=== PATIENT | female | born 1940 | race Caucasian/White ===

== ENCOUNTER 2018-09-26 17:27 | Inpatient (IN) | payer OTHER, BC ==
[~2018-09-26] VITALS: Ht 152.4 cm; Wt 45.8 kg
[2018-09-26 17:30] VITALS: BP 172/54
--- NOTE | 2018-09-26 17:50 | NUR ---
PT TO ER BED 10 BY [facility]
--- NOTE | 2018-09-26 17:55 | NUR ---
BIBA. C/O GENERALIZED WEAKNESS, LETHARGIC, S/P DIALYSIS, -SOB. AV SHUNT TO RIGHT ARM. PT HAS ADVANCED DEMENTIA. ALERT, AWAKE, ORIENTED TO NAME. BS-77. HOB UP. BED SIDE RAILS UP X1. ON LOW BED POSITION, LOCKED. ER MADE AWARE OF PT STATUS.
[2018-09-26 18:24] LABS: BASOPHILS # (AUTO) 0.1 K/uL (0.00-0.22); BASOPHILS % (AUTO) 0.8 % (0.0-2.0); EOSINOPHILS # (AUTO) 0.1 K/uL (0-0.4); EOSINOPHILS % (AUTO) 1.8 % (0.0-4.0); HEMATOCRIT 30.9 % (36-48); HEMOGLOBIN 10.3 g/dL (12.0-16.0); LYMPHOCYTES # (AUTO) 1.3 K/uL (2.5-16.5); LYMPHOCYTES % (AUTO) 16.7 % (20.5-51.1); MEAN CORPUSCULAR HEMOGLOBIN 31 pg (27-31); MEAN CORPUSCULAR HGB CONC 33 g/dL (33-37); MEAN CORPUSCULAR VOLUME 93.8 fL (80-94); MONOCYTES # (AUTO) 0.8 K/uL (0.8-1.0); MONOCYTES % (AUTO) 11.2 % (1.7-9.3); NEUTROPHILS # (AUTO) 5.3 K/uL (1.8-7.7); NEUTROPHILS % (AUTO) 69.5 % (42.2-75.2); PLATELET COUNT (AUTO) 199 K/uL (140-450); RED BLOOD CELL COUNT(AUTO) 3.29 MIL/uL (4.20-5.40); RED CELL DISTRIBUTION WIDTH 15.9 % (11.6-13.7); WHITE BLOOD COUNT (AUTO) 7.6 K/uL (4.8-10.8)
[2018-09-26] MEDS ORDERED: ALBUTEROL SULFATE/IPRATROPIU 3 ML SOL IH ONE (18:25)
[2018-09-26] MEDS ORDERED: DEXAMETHASONE 10 MG/ML VIAL IVP ONE (18:25)
[2018-09-26] MEDS ORDERED: CARV6.25 PO (18:26)
[2018-09-26] MEDS ORDERED: IRON SUCROSE IVP (18:26)
[2018-09-26] MEDS ORDERED: VALS80TA2 PO (18:26)
[2018-09-26] MEDS ORDERED: AMLO-272 PO (18:26)
[2018-09-26] MEDS ORDERED: EPOE2000 IVP (18:26)
[2018-09-26] MEDS ORDERED: [UNRECOGNIZED DRUG - OTHER] PO (18:26)
[2018-09-26] MEDS ORDERED: [UNRECOGNIZED DRUG - OTHER] IVP (18:26)
[2018-09-26] MEDS ORDERED: APR10 PO (18:26)
[2018-09-26] MEDS ORDERED: [UNRECOGNIZED DRUG - CODE] IV (18:26)
[2018-09-26] MEDS ORDERED: BEN50 IVP (18:26)
[2018-09-26] MEDS ORDERED: CLON0.1T42 PO (18:26)
[2018-09-26] MEDS ORDERED: ACET-2619 PO (18:26)
[2018-09-26] MEDS ORDERED: QUET25TA PO (18:26)
[2018-09-26] MEDS ORDERED: ACET500C86 PO (18:26)
[2018-09-26] MEDS ORDERED: SEVE800T6 PO (18:26)
[2018-09-26] MEDS ORDERED: BENC PO (18:26)
[2018-09-26] MEDS ORDERED: VITD1000 PO (18:26)
[2018-09-26 18:32] LABS: ANION GAP 14.2 (8-16); CARBON DIOXIDE 28.8 mmol/L (21-32); CHLORIDE 99 mmol/L (98-107); GLUCOSE 85 mg/dL (74-106); SODIUM SERUM 138 mmol/L (136-145); UREA NITROGEN, BLOOD 34 mg/dL (7-18)
[2018-09-26 18:36] LABS: CREATININE 4.9 mg/dL (0.6-1.3)
--- NOTE | 2018-09-26 18:36 | NUR ---
career technology teacher at bedside.
--- NOTE | 2018-09-26 18:37 | NUR ---
CXR COMPLETED AT BEDSIDE
[2018-09-26 18:38] LABS: ALBUMIN 3.4 g/dL (3.4-5.0); ASPARTATE AMINOTRANSFERASE 27 U/L (15-37); TOTAL BILIRUBIN 0.7 mg/dL (0.0-1.0)
--- NOTE | 2018-09-26 18:44 | NUR ---
Respiratory therapist at bedside for breathing treatment and ABG.
[2018-09-26] MEDS ORDERED: cefTRIAXone 1,000 MG VIAL ONE (18:59)
--- NOTE | 2018-09-26 19:05 | NUR ---
bedside report received from KULWANT Rayo. transfer of care at this time
--- NOTE | 2018-09-26 19:09 | NUR ---
PT DID NOT ALLOW ME TO DRAW ABG. SON AT BEDSIDE. MD AND RN AWARE. HHN TX GIVEN WITH NO ADVERSE REACTION. NO SOB OR DISTRESS NOTED. WILL CONTINUE TO MONITOR.
[2018-09-26] MEDS ORDERED: AZITHROMYCIN 250 MG TAB PO ONE (19:15)
[2018-09-26] MEDS ORDERED: MEDICATION REC. PHARMACY CONS. 1 EA MISC MC PRN (19:30)
[2018-09-26] MEDS: NACL 0.9% 1,000 ML IV SCH (19:34)
[2018-09-26] MEDS ORDERED: ACETAMINOPHEN 325 MG TAB PO PRN (19:35)
[2018-09-26] MEDS ORDERED: ONDANSETRON 4 MG/2 ML VIAL IM/IVP PRN (19:35)
[2018-09-26] MEDS ORDERED: DOCUSATE SODIUM 100 MG GELCAP PO PRN (19:35)
[2018-09-26] MEDS ORDERED: HYDROcodone/APAP 7.5/325 MG 1 TAB PO PRN (19:35)
[2018-09-26] MEDS ORDERED: AZITHROMYCIN 500 MG in DEXTROSE 5% 250 ML IV ONE (19:45)
[2018-09-26 19:50] LABS: APPEARANCE,URINE CLEAR (CLEAR); BILIRUBIN,URINE NEGATIVE (NEGATIVE); BLOOD, URINE NEGATIVE (NEGATIVE); COLOR,URINE YELLOW (YELLOW); LEUKOCYTE ESTERASE ,URINE 1+ (NEGATIVE); NITRITE, URINE NEGATIVE (NEGATIVE); PH,URINE 8.5 (5.0-9.0); UGLUCOSE 1+ (NEGATIVE)
[2018-09-26 19:57] LABS: BARBITURATE, URINE NEG. ng/ml (NEG <=200); BENZODIAZEPINE, URINE NEG. ng/mL (NEG <=200); CANNABINOID, URINE NEG. ng/mL (NEG <=50); COCAINE, URINE NEG. ng/mL (NEG <=300); OPIATE, URINE NEG. ng/mL (NEG <=2000); PHENCYCLIDINE SCREEN,URINE NEG. ng/mL (NEG <=25)
[2018-09-26] MEDS ORDERED: AZITHROMYCIN 500 MG INJ VIAL IV ONE (19:58)
[2018-09-26 20:01] LABS: RBC,URINE 0-5 /HPF (0-5); WBC,URINE 0-5 /HPF (0-5)
--- NOTE | 2018-09-26 20:10 | NUR ---
Pt report given to KULWANT Leiva. Transfer of care at this time.
--- NOTE | 2018-09-26 20:10 | NUR ---
Patient will be admitted to care of MD Rashaun. Admited to Telemetry. Will go to room 123 A. Belongings list completed. Report to KULWANT Leiva.
[2018-09-26 20:14] LABS: CHOL/HDL RATIO 2.7 (1-4.5); FREE T4 (FREE THYROXINE) 1.28 ng/dL (0.76-1.46); MAGNESIUM 2.4 mg/dL (1.8-2.4); PHOSPHORUS 4.6 mg/dL (2.5-4.9); THYROID STIMULATING HORMONE 1.61 uIU/mL (0.34-3.74)
[2018-09-26] MEDS ORDERED: cloNIDine 0.1 MG TAB PO PRN (20:15)
[2018-09-26 20:20] VITALS: BP 124/90
--- NOTE | 2018-09-26 20:20 | NUR ---
RECEIVED BEDSIDE REPORT FROM KULWANT MORENO, PATIENT IN BED, ON 2 L NC. V/S TAKEN NOTED BP 124/90 HR 80 O2SAT 95%. SKIN INTACT, LUNG SOUNDS DIMINISHED, MRSA SCREEN COLLECTED AND SENT TO LAB. IV IN LEFT HAND 22 G INFUSING AZITHROMYCIN. NOTED RIGHT UPPER ARM AV SHUNT. PATIENT DROWSY, AAOX1 TO PERSON, SON FERNANDO AT BEDSIDE ABLE TO ANSWER ADMISSION QUESTIONS. BED ALARM ON, CALL LIGHT WITHIN REACH, WILL CONTINUE TO MONITOR.
[2018-09-26] MEDS: CARVEDILOL 6.25 MG TAB PO SCH (21:00)
[2018-09-26] MEDS ORDERED: amLODIPine 5 MG TAB PO SCH (21:00)
[2018-09-26] MEDS ORDERED: NON-FORMULARY ITEM (Amlodipine Besylate (Amlodipine) 5 MG) PO SCH (21:00)
[2018-09-26] MEDS: VALSARTAN 80 MG TAB PO SCH (21:00)
[2018-09-26] MEDS ORDERED: hydrALAZINE 10 MG TAB PO SCH (21:00)
--- NOTE | 2018-09-26 21:30 | NUR ---
PLACED PATIENT ON 2LNC. SATS ON ROOM AIR 91%. CUP PLACED AT BEDSIDE FOR SPUTUM SAMPLE. PATIENT SPEAKS DIVEHI. PT SEEMS ALTERED.
--- NOTE | 2018-09-26 21:38 | NUR ---
DR ORANTES ORDERED TO HOLD BP MEDS SINCE BP IS WITHIN NORMAL LIMITS. WILL RESTART BP MEDS IN MORNING
--- NOTE | 2018-09-26 22:03 | NUR ---
PATIENT SCRATCHING ARMS AND LEGS, GAVE BENADRYL ACCORDING TO MD ORDER. IVF INFUSING NS AT 10 ML/HR.
--- NOTE | 2018-09-26 22:45 | NUR ---
INFLUENZA A AND B SCREEN COLLECTED AND SENT TO LAB
[2018-09-27] VITALS: BP 146/80
--- NOTE | 2018-09-27 00:30 | NUR ---
V/S TAKEN BP 146/80 HR 78
--- NOTE | 2018-09-27 03:00 | NUR ---
PATIENT REFUSING TO WEAR TELE BOX, EDUCATION PROVIDED. WILL TRY TO PLACE BACK ON TELE LATER.
--- NOTE | 2018-09-27 03:34 | NUR ---
NOTIFIED DR ORANTES PATIENT REFUSING TO WEAR TELE BOX.
--- NOTE | 2018-09-27 03:59 | NUR ---
PATIENT REFUSING V/S CHECK, SHOUTING "NO!". BED ALARM ON.
[2018-09-27] MEDS ORDERED: CLINDAMYCIN 600 MG/4 ML VIAL ONE (05:12)
--- NOTE | 2018-09-27 05:41 | NUR ---
PATIENT PULLED OUT IV, BEING COMBATIVE, TRYING TO GET OUT OF BED. CALLED DR ORANTES FOR ONE TIME DOSE ATIVAN.
--- NOTE | 2018-09-27 05:54 | NUR ---
PT COMBATIVE. REFUSED EKG.
[2018-09-27] MEDS ORDERED: CLINDAMYCIN 600 MG in DEXTROSE 5% 50 ML IV SCH (06:00)
--- NOTE | 2018-09-27 06:23 | NUR ---
INSERTED IV IN LEFT FA 22 G INFUSING CLEOCIN
[2018-09-27] MEDS: ALBUTEROL SULFATE/IPRATROPIU 3 ML SOL IH SCH ×3 (06:53→20:22)
--- NOTE | 2018-09-27 06:53 | NUR ---
PT COMBATIVE WAS HITTING RT HANDS NO HHN GIVEN AT THIS TIME
--- NOTE | 2018-09-27 07:24 | NUR ---
ENDORSED PATIENT TO DAY SHIFT NURSE, PATIENT STABLE.
--- NOTE | 2018-09-27 07:25 | NUR ---
RECIEVED REPORT FROM PM NURSE AT BEDSIDE. PT HAS HX OF DEMENTIA, TRIES GETTING OFF FROM BED ALL TIME. PT IS ON FALL RISK PRECAUTION. PT AOX1-2. BED ALARM ON. HAS IV ACCESS O LFT HAND. PT AV SHUNT ON HER RT HAND. DIALYSIS TO TO GET ON M, W, F. PLACED CALL LIGHT WITHIN PT REACH. INFORMED HER TO USE CALL LIGHT FOR ANY HELP. SIDE RAILS UP. WILL CONTINUE TO MONITOR PT.
[2018-09-27 08:00] VITALS: BP 164/83
--- NOTE | 2018-09-27 08:39 | NUR ---
PATIENT HAS BEEN SCREENED AND CATEGORIZED MODERATE NUTRITION RISK. PATIENT WILL BE SEEN WITHIN 3-5 DAYS OF ADMISSION. 09/28/18ASHISH ALFORD RD
[2018-09-27] MEDS: ECOTRIN 81 MG TABEC PO SCH (08:50)
[2018-09-27] MEDS: CHOLECALCIFEROL 1,000 IU TAB PO SCH (08:51)
[2018-09-27] MEDS: CARVEDILOL 6.25 MG TAB PO SCH ×2 (08:51→20:33)
[2018-09-27] MEDS: VALSARTAN 80 MG TAB PO SCH ×2 (08:51→20:32)
[2018-09-27] MEDS: LACTOBACILLUS RHAMNOSUS GG 1 EACH CAP PO SCH (08:52)
[2018-09-27] MEDS: hydrALAZINE 25 MG TAB PO SCH ×2 (08:52→20:33)
[2018-09-27] MEDS: amLODIPine 5 MG TAB PO SCH (08:53)
[2018-09-27] MEDS: SEVELAMER CARBONATE 800 MG TAB PO SCH ×3 (08:53→17:00)
--- NOTE | 2018-09-27 09:05 | NUR ---
PT SI CONFUSED AND IS NON-COMPLIANCE TO TAKE HER MEDS. PT SPIT HYDRALAZINE. PT GAVE OTHER BP MEDS, WILL ADMINISTER OTHER MEDS LATER. DIVISION TOLL WIRE CHIEF AT BEDSIDE. NO SIGN OF DISTRESS NOTED. BED ALARM ON . WILL CONTINUE TO MONITOR PT.
[2018-09-27 09:53] LABS: BASOPHILS % (AUTO) 0.6 % (0.0-2.0); EOSINOPHILS % (AUTO) 0.1 % (0.0-4.0); HEMATOCRIT 34.9 % (36-48); HEMOGLOBIN 11.6 g/dL (12.0-16.0); LYMPHOCYTES # (AUTO) 0.7 K/uL (2.5-16.5); LYMPHOCYTES % (AUTO) 10.8 % (20.5-51.1); MEAN CORPUSCULAR HEMOGLOBIN 31 pg (27-31); MEAN CORPUSCULAR HGB CONC 33 g/dL (33-37); MEAN CORPUSCULAR VOLUME 94.2 fL (80-94); MONOCYTES # (AUTO) 0.7 K/uL (0.8-1.0); MONOCYTES % (AUTO) 10.2 % (1.7-9.3); NEUTROPHILS # (AUTO) 5.2 K/uL (1.8-7.7); NEUTROPHILS % (AUTO) 78.3 % (42.2-75.2); PLATELET COUNT (AUTO) 252 K/uL (140-450); RED CELL DISTRIBUTION WIDTH 15.8 % (11.6-13.7); WHITE BLOOD COUNT (AUTO) 6.6 K/uL (4.8-10.8)
[2018-09-27 10:17] LABS: ANION GAP 18.7 (8-16); CARBON DIOXIDE 27.7 mmol/L (21-32); CHLORIDE 97 mmol/L (98-107); GLUCOSE 136 mg/dL (74-106); POTASSIUM 5.4 mmol/L (3.5-5.1); SODIUM SERUM 138 mmol/L (136-145); UREA NITROGEN, BLOOD 49 mg/dL (7-18)
[2018-09-27 10:21] LABS: CREATININE 6.7 mg/dL (0.6-1.3)
--- NOTE | 2018-09-27 10:39 | NUR ---
PT IS CONFUSED. TREIS TO GET OUT OF BED ALL THE TIME. WATCHING PT FROM THE DOOR SIDE. CAN HELPING PT TO GO BACK TO THE BED. BED ALARM ON. WILL CONTINUE TO MONITOR PT.
--- NOTE | 2018-09-27 11:02 | NUR ---
PT SITTING ON HER CHAIR . PLACED CALL LIGHT WITHIN PT REACH. PT REFUSES TO GO BACK TO BED. WILL KEEP MONITORING PT.
[2018-09-27] MEDS ORDERED: cloNIDine 0.1 MG TAB PO PRN (11:25)
--- NOTE | 2018-09-27 12:15 | NUR ---
CHECKED ON PT, REFUSED HER VS AGAIN. DENIES TO ALLOW TO RECORD VS AT THIS TIME. PT SITTING ON HER CHAIR, EATING HER LUNCH. WRAPPED THE IV SITE WITH KERLIX TO PREVENT DISLODGEMENT OF IV ACCESS, PT PULLING OUT HER IV. WILL KEEP MONITORING PT..
[2018-09-27] MEDS: CLINDAMYCIN PHOS 600MG/D5W PM 50 ML IV SCH ×2 (13:10→20:33)
--- NOTE | 2018-09-27 13:20 | NUR ---
S.T. BEDSIDE SWALLOW EVAL COMPLETED See report for details. Pt presents with adequate oropharyngeal swallow function for P.O. trials given--cracker and thin liquids. No overt s/s aspiration observed. Pt able to self-feed w/ min assist. Pt verbalized disliking pureed food. Pt's baseline diet texture per records from SNF in paper chart is regular texture, low Na+. Recommend: 1) Advance diet texture to mechanical soft chopped. Thin liquids okay. Straws ok. 2) P.O. meds as tolerated Pt appears to be functioning at or near baseline level. No further tx indicated. A chopped diet will aid in pt's ability to self-feed. DC to [facility] at this time. Time [id number]
--- NOTE | 2018-09-27 13:47 | NUR ---
PT WITH LAKIA, WALKING IN THE [facility] HALLWAY. FINISHED THE ABX INFUSION. PT BACK TO THE BED. MANAGER GENERAL AT BEDSIDE. PT WILL BE MEDICATED WITH [PO MEDS. WILL CONTINUE TO MONITOR PT.
[2018-09-27 15:12] LABS: FOLIC ACID > 20.00 ng/mL (>3.0); HEPATITIS A ANTIBODY IGM Negative (Negative); HEPATITIS B CORE AB TOTAL Positive (Negative); HEPATITIS B SURFACE ANTIBODY Reactive (.); HEPATITIS B SURFACE ANTIGEN Negative (Negative)
--- NOTE | 2018-09-27 15:34 | NUR ---
PT SEEN BY THE CROP PICKER. ASKED TO GET THE CONSENT FOR HD FOR TOMORROW. CALLED PTS SONADA FOR VERBAL CONSENT PT IS VERY CONFUSED. PT SON [id number] OKAY TO GET THE DIALYSIS FOR THE PT. VERIFIED BY SECOND RN SANTY WITNESS FOR TELEPHONE CONSENT. PT WALKING ON THE HALLWAY WITH ORDER TAKERS SUPERVISOR . WILL CONTINUE TO MONITOR PT.
[2018-09-27 16:00] VITALS: BP 139/66
--- NOTE | 2018-09-27 17:03 | NUR ---
CHECKED ON THE PATIENT. SLEEPING ON HER RT LATERAL SIDE. TOOK HER VS, BP 139/66. O2 SAT 97%V ON RA. PT TAKES HER NC OFF ALL THE TIME, NO SIGN OF DISTRESS NOTED AT THIS TIME. BED ALARM ON, PT ON HER BED AT THIS TIME. WILL CONTINUE TO MONITOR PT.
--- NOTE | 2018-09-27 19:05 | NUR ---
ENDORSED PT TO PM NURSE AT BEDSIDE. PT IN STABLE CONDITION.
--- NOTE | 2018-09-27 19:30 | NUR ---
ASSUMED CARE OF PATIENT, AWAKE, CONFUSED. ALWAYS ATTEMPTING TO GET OUT OF BED. NO DISTRESS NOTED. CARE BOARD UPDATED. PLAN OF CARE DISCUSSED WITH PATIENT, VERBALIZED UNDERSTANDING WELL. CALL LIGHT WITHIN REACH.
--- NOTE | 2018-09-27 20:28 | NUR ---
RECEIVED PATIENT ON ROOM AIR. RECEIVED VITALS FROM 1:1 RN AT BEDSIDE; PATIENT REFUSING ASSESSMENT. PATIENT REFUSING BREATHING TREATMENT. NO RESPIRATORY DISTRESS NOTED AT THIS TIME. WILL CONTINUE TO MONITOR.
--- NOTE | 2018-09-27 20:30 | NUR ---
ATTEMPTING TO PULL OUT IV ACCESS. DUE MEDS GIVEN. CALL LIGHT WITHIN REACH.
[2018-09-27] MEDS: MELATONIN 3 MG TAB PO PRN (20:32)
[2018-09-27] MEDS: NACL 0.9% 1,000 ML IV SCH (20:34)
[2018-09-27] MEDS ORDERED: diphenhydrAMINE 50 MG/ML VIAL IVP ONE (20:45)
[2018-09-27 21:51] VITALS: BP 149/82
--- NOTE | 2018-09-27 22:30 | NUR ---
FOUND PATIENT ALMOST STANDING AT THE BEDSIDE. REFUSED TO STAY IN BED. KEEP TALKING AND NOT MAKING ANY SENSE. SITTER AT BEDSIDE. PLAN OF CARE DISCUSSED WITH PATIENT, VERBALIZED UNDERSTANDING WELL. CALL LIGHT WITHIN REACH.
[2018-09-27] MEDS ORDERED: LORazepam 2 MG/ML VIAL IVP SCH (23:00)
--- NOTE | 2018-09-28 | NUR ---
VITAL SIGNS STABLE. NO DISTRESS NOTED. NO COMPLAINS. CALL LIGHT WITHIN REACH.
[2018-09-28 00:08] VITALS: BP 138/87
--- NOTE | 2018-09-28 03:48 | NUR ---
SITTER AT BEDSIDE. ASLEEP NO DISTRESS. CALL LIGHT WITHIN REACH.
[2018-09-28] MEDS: CLINDAMYCIN PHOS 600MG/D5W PM 50 ML IV SCH ×3 (04:45→20:34)
[2018-09-28 06:31] LABS: BASOPHILS # (AUTO) 0.1 K/uL (0.00-0.22); BASOPHILS % (AUTO) 0.7 % (0.0-2.0); EOSINOPHILS # (AUTO) 0.1 K/uL (0-0.4); EOSINOPHILS % (AUTO) 1.1 % (0.0-4.0); HEMATOCRIT 34.3 % (36-48); HEMOGLOBIN 11.5 g/dL (12.0-16.0); LYMPHOCYTES # (AUTO) 1.2 K/uL (2.5-16.5); LYMPHOCYTES % (AUTO) 14.8 % (20.5-51.1); MEAN CORPUSCULAR HEMOGLOBIN 32 pg (27-31); MEAN CORPUSCULAR HGB CONC 34 g/dL (33-37); MONOCYTES # (AUTO) 0.8 K/uL (0.8-1.0); MONOCYTES % (AUTO) 10.1 % (1.7-9.3); NEUTROPHILS # (AUTO) 6.1 K/uL (1.8-7.7); NEUTROPHILS % (AUTO) 73.3 % (42.2-75.2); PLATELET COUNT (AUTO) 236 K/uL (140-450); RED BLOOD CELL COUNT(AUTO) 3.65 MIL/uL (4.20-5.40); RED CELL DISTRIBUTION WIDTH 15.4 % (11.6-13.7); WHITE BLOOD COUNT (AUTO) 8.3 K/uL (4.8-10.8)
--- NOTE | 2018-09-28 06:51 | NUR ---
SITTER AT BEDSIDE. SLEEPING EASILY AROUSABLE. CALL LIGHT WITHIN REACH.
[2018-09-28 06:59] LABS: ANION GAP 19.3 (8-16); CARBON DIOXIDE 27.7 mmol/L (21-32); CHLORIDE 93 mmol/L (98-107); GLUCOSE 102 mg/dL (74-106); SODIUM SERUM 134 mmol/L (136-145)
[2018-09-28 07:00] LABS: MAGNESIUM 2.4 mg/dL (1.8-2.4)
[2018-09-28] MEDS: ALBUTEROL SULFATE/IPRATROPIU 3 ML SOL IH SCH ×3 (07:00→20:05)
[2018-09-28 07:01] LABS: CREATININE 7.7 mg/dL (0.6-1.3); UREA NITROGEN, BLOOD 64 mg/dL (7-18)
--- NOTE | 2018-09-28 07:35 | NUR ---
ENDORSED CARE AT BEDSIDE WITH CONCHITA BLUM, PATIENT IN STABLE CONDITION.
--- NOTE | 2018-09-28 07:38 | NUR ---
RECEIVED REPORT FROM LOCOMOTIVE INSPECTOR NURSE AT BEDSIDE. PT HAS HX OF DEMENTIA, TRIES GETTING OUT OF BED OFTEN ACCORDING TO LOCOMOTIVE INSPECTOR RN. PT IS ON FALL RISK PRECAUTION. PT AOX2. BED ALARM ON. HAS IV ACCESS ON LFT FA, SALINE LOCKED. PT AV SHUNT ON HER RT ARM. DIALYSIS SCHEDULED FOR TODAY. PLACED CALL LIGHT WITHIN PT REACH. INFORMED HER TO USE CALL LIGHT FOR ANY HELP. SIDE RAILS UP. WILL CONTINUE TO MONITOR PT.
[2018-09-28 08:00] VITALS: BP 136/65
[2018-09-28] MEDS: VALSARTAN 80 MG TAB PO SCH ×3 (09:00→21:00)
[2018-09-28] MEDS: SEVELAMER CARBONATE 800 MG TAB PO SCH ×3 (09:00→17:10)
[2018-09-28] MEDS: hydrALAZINE 25 MG TAB PO SCH ×3 (09:00→21:00)
[2018-09-28] MEDS: CARVEDILOL 6.25 MG TAB PO SCH ×2 (09:00→20:36)
[2018-09-28] MEDS: amLODIPine 5 MG TAB PO SCH (09:00)
[2018-09-28] MEDS: CHOLECALCIFEROL 1,000 IU TAB PO SCH (09:20)
[2018-09-28] MEDS: VIT-B COMP/VIT-C/FOLIC ACID 1 TAB PO SCH (09:20)
[2018-09-28] MEDS: LACTOBACILLUS RHAMNOSUS GG 1 EACH CAP PO SCH (09:20)
[2018-09-28] MEDS: ECOTRIN 81 MG TABEC PO SCH (09:20)
--- NOTE | 2018-09-28 09:26 | NUR ---
ADMINISTERED MORNING MEDS TO PT. PT TOLERATED THEM WELL. ALL BP MEDS HELD DUE TO PT HAVING DIALYSIS TODAY. NO COMPLAINTS OF PAIN OR DISTRESS AT THIS TIME. AT PT BEDSIDE SITTER. BED IN LOW POSITION, CALL LIGHT WITHIN REACH.
--- NOTE | 2018-09-28 11:47 | NUR ---
PT IN BED SLEEPING. NO SIGNS OF PAIN OR DISTRESS NOTED. ALL NEEDS MET A THIS TIME. SITTING AT PT BEDSIDE. WILL CONTINUE OT MONITOR PT CLOSELY. HER SON FERNANDO CALLED FOR UPDATE ON PT. HE WAS TOLD THAT PT IS STABLE AT THIS TIME AND DIALYSIS IS EXPECTED FOR LATER TODAY.
--- NOTE | 2018-09-28 12:02 | NUR ---
RECEIVED CALL BACK FROM KIMBERLY, DIALYSIS NURSE. KIMBERLY IS NOW AWARE OF PT NEEDING DIALYSIS. DIALYSIS WILL BE DONE LATER TODAY. PT BP STABLE. ALL BP MEDS BEING HELD PER DIALYSIS PROTOCOL.
--- NOTE | 2018-09-28 13:01 | NUR ---
PT FINISHING LUNCH SITTING AT SIDE OF BED. NO COMPLAINTS OF PAIN OR SOB. TOLERATING MEAL WELL. ALL NEEDS MET AT THIS TIME. WILL CONTINUE TO MONITOR PT CLOSELY.
--- NOTE | 2018-09-28 14:00 | NUR ---
PT WATCHING TV AT THIS TIME, ONGOING WITH BREATHING TREATMENT, PT CALM, IV ANTIBIOTIC ALSO ONGOING.
--- NOTE | 2018-09-28 14:37 | NUR ---
DIALYSIS NURSE KIMBERLY BEGINNING DIALYSIS ON PT. PT IN STABLE CONDITION AT THIS TIME.
[2018-09-28 16:00] VITALS: BP 189/71
--- NOTE | 2018-09-28 17:21 | NUR ---
PT CURRENTLY RECEIVING DIALYSIS. PT TOLERATING WELL. BP SPIKED TO 197/76. CLONIDINE GIVEN AT 1629 TO LOWER BP. BP IS NOW READING 165/73. WILL CONTINUE TO MONITOR FOR MED EFFECTIVENESS. ALL OTHER NEEDS MET AT THIS TIME. BED IN LOW POSITION, CALL LIGHT WITHIN REACH.
--- NOTE | 2018-09-28 17:49 | NUR ---
PT DIALYSIS COMPLETED. PT STABLE AT THIS TIME. 2L REMOVED. VITAL SIGNS FOLLOWS: TEMP-97.6, HR-60, BP-167/67, O2 SAT-98%, RR-18. ALL NEEDS MET. BED IN LOW POSITION, CALL LIGHT WITHIN REACH. WILL CONTINUE TO MONITOR PT.
--- NOTE | 2018-09-28 19:21 | NUR ---
ENDORSED PT TO QUALITY ASSURANCE ASSOCIATE FOR CONTINUITY OF CARE. PT IN STABLE CONDITION AT THIS TIME.
--- NOTE | 2018-09-28 19:22 | NUR ---
RECEIVED REPORT FROM AM SHIFT NURSE AT BEDSIDE.PT AOX2, AMBULATORY,PT UNCOOPERATIVE, PT WANTING TO GO OUT OF THE ROOM, PT WAS AT THE DOOR. ATTEMPTED TO BITE NURSE AND SLAPPED NURSE WHEN PREVENTED TO GO OUT OF ROOM, PT SHOUTING. PT IS ON FALL RISK PRECAUTION. BED ALARM ON. HAS IV ACCESS ON LFT FA, SALINE LOCKED. PT AV SHUNT ON HER RT ARM. DIALYSIS DONE THIS AM PER PREVIOUS SHIFT. PLACED CALL LIGHT WITHIN PT REACH. SIDE RAILS UP. WITH SITTER. WILL CONTINUE TO MONITOR PT.
[2018-09-28] MEDS: NACL 0.9% 1,000 ML IV SCH (19:34)
[2018-09-28 20:00] VITALS: BP 182/96
--- NOTE | 2018-09-28 20:05 | NUR ---
UNABLE TO GIVE HHN TX PATIENT WAS UP AND TRYING TO LEAVE HER ROOM. PATIENT WAS COMBATIVE TRYING TO HIT AND BITE STAFF. PATIENT DID NOT APPEAR TO BE IN ANY DISTRESS OR SOB.
[2018-09-28] MEDS ORDERED: LORazepam 2 MG/ML VIAL IVP SCH (21:00)
--- NOTE | 2018-09-28 21:00 | NUR ---
UNABLE TO GIVE MEDICATIONS, PT DISCARDED ALL HER BP MEDS, VALSARTAN, HYDRALAZINE-2 TABS.. ALSO DISCARDED HER MELATONIN. SHE THERE ALL HER PO MEDS. UNABLE TO DO SUBCUTANEOUS INJECTION HEPARIN DUE TO PT REFUSAL.
[2018-09-28] MEDS ORDERED: LORazepam 2 MG/ML VIAL ONE (21:17)
[2018-09-28] MEDS: MELATONIN 3 MG TAB PO PRN (21:48)
[2018-09-28 22:00] VITALS: BP 196/97
--- NOTE | 2018-09-28 22:00 | NUR ---
BP TAKEN 161/[address] ORANTES AWARE. NO NEW ORDERS.
--- NOTE | 2018-09-28 22:02 | NUR ---
RETURNED THE SQ HEPARIN. DISCARDED/WASTED HRRALAZINE 2 TABS, VALSAERTAN, MELATONIN
[2018-09-28] MEDS: hydrALAZINE 20 MG/ML VIAL IVP PRN (22:09)
--- NOTE | 2018-09-28 22:09 | NUR ---
PT TAKEN BP AGAIN BEFORE ADMINISTRATION OF HYDRALAZINE BOP 196/97, HR 85. HYDRALAZINE IV ADMINISTERED
--- NOTE | 2018-09-28 22:09 | NUR ---
GIVEN PT IV HYDRALAZINE ORDERED PRN BP IS 182/96, HR 84. DR ORANTES AWARE Addendum: 09/28/18 at 2328 by Charlotte Wallace RN WRONG PT PLS DELETE NOTE
--- NOTE | 2018-09-28 23:09 | NUR ---
PT REASSED BP AFTER HYDRALAZINE IV BP-168/54, HR 62
[2018-09-29] MEDS: hydrALAZINE 20 MG/ML VIAL IVP PRN ×2 (03:59→19:43)
[2018-09-29 04:00] VITALS: BP 175/74
--- NOTE | 2018-09-29 04:04 | NUR ---
PT BP 175/74, HR 65. MEDS ORDERED PRN GIVEN
[2018-09-29] MEDS: CLINDAMYCIN PHOS 600MG/D5W PM 50 ML IV SCH ×3 (05:04→21:27)
--- NOTE | 2018-09-29 05:43 | NUR ---
LATEST BP 140/61, HR 67
--- NOTE | 2018-09-29 06:12 | NUR ---
LAB HAS NOT DRAWN BLOOD, WILL TRY AGAIN LATER
--- NOTE | 2018-09-29 06:41 | NUR ---
PT ASLEEP IN BED COMFORTABLE, NOT IN RESPIRATORY DISTRESS, NOT IN PAIN. WILL ENDORSE TO NEXT SHIFT FOR CONTINUITY OF CARE.
[2018-09-29] MEDS: ALBUTEROL SULFATE/IPRATROPIU 3 ML SOL IH SCH ×3 (07:00→14:00)
--- NOTE | 2018-09-29 07:25 | NUR ---
REPORT RECEIVED FROM MAIL CARRIER AND CLERK NURSE AT BEDSIDE FOR CONTINUITY OF CARE. PATIENT SLEEPING. NO SIGN OF DISTRESS OR SOB ON ROOM AIR, RESPIRATIONS EVEN AND UNLABORED. PATIENT DENIES PAIN. UPDATED BOARD. IV INTACT, ASYMPTOMATIC, AND SALINE LOCK, PER MAIL CARRIER AND CLERK RN, PATIENT REFUSED IV FLUIDS AND ORAL MEDICATIONS. SAFETY PRECAUTIONS IN PLACE, CALL LIGHT WITHIN REACH, WILL CONTINUE TO MONITOR PATIENT.
[2018-09-29 07:46] LABS: BASOPHILS # (AUTO) 0.1 K/uL (0.00-0.22); EOSINOPHILS # (AUTO) 0.2 K/uL (0-0.4); EOSINOPHILS % (AUTO) 3.5 % (0.0-4.0); HEMATOCRIT 32.4 % (36-48); HEMOGLOBIN 10.9 g/dL (12.0-16.0); LYMPHOCYTES # (AUTO) 1.1 K/uL (2.5-16.5); LYMPHOCYTES % (AUTO) 15.7 % (20.5-51.1); MEAN CORPUSCULAR HEMOGLOBIN 32 pg (27-31); MEAN CORPUSCULAR HGB CONC 34 g/dL (33-37); MEAN CORPUSCULAR VOLUME 93.2 fL (80-94); MONOCYTES # (AUTO) 0.9 K/uL (0.8-1.0); MONOCYTES % (AUTO) 13.5 % (1.7-9.3); NEUTROPHILS # (AUTO) 4.4 K/uL (1.8-7.7); NEUTROPHILS % (AUTO) 66.3 % (42.2-75.2); PLATELET COUNT (AUTO) 204 K/uL (140-450); RED BLOOD CELL COUNT(AUTO) 3.48 MIL/uL (4.20-5.40); RED CELL DISTRIBUTION WIDTH 15.3 % (11.6-13.7); WHITE BLOOD COUNT (AUTO) 6.7 K/uL (4.8-10.8)
[2018-09-29 07:55] LABS: ANION GAP 14.9 (8-16); CARBON DIOXIDE 28.3 mmol/L (21-32); CHLORIDE 98 mmol/L (98-107); GLUCOSE 85 mg/dL (74-106); POTASSIUM 4.2 mmol/L (3.5-5.1); SODIUM SERUM 137 mmol/L (136-145); UREA NITROGEN, BLOOD 35 mg/dL (7-18)
[2018-09-29 08:00] VITALS: BP 143/56
[2018-09-29 08:03] LABS: MAGNESIUM 1.9 mg/dL (1.8-2.4); PHOSPHORUS 7.1 mg/dL (2.5-4.9)
--- NOTE | 2018-09-29 08:30 | NUR ---
PATIENT REFUSED 0900 MEDICATIONS, PATIENT CURRENTLY EATING BREAKFAST. WILL CHECK BACK WITH PATIENT AND OFFER MEDICATIONS AGAIN. WILL CONTINUE TO MONITOR PATIENT.
[2018-09-29] MEDS ORDERED: CARVEDILOL 6.25 MG TAB PO SCH (09:00)
--- NOTE | 2018-09-29 09:10 | NUR ---
DR. RASHID IN TO SEE PATIENT. WILL WAIT FOR HIS ORDERS.
[2018-09-29] MEDS ORDERED: CARVEDILOL 12.5 MG TAB PO SCH (09:37)
[2018-09-29] MEDS: amLODIPine 5 MG TAB PO SCH (10:00)
[2018-09-29] MEDS: VIT-B COMP/VIT-C/FOLIC ACID 1 TAB PO SCH (10:00)
[2018-09-29] MEDS: ECOTRIN 81 MG TABEC PO SCH (10:00)
[2018-09-29] MEDS: CHOLECALCIFEROL 1,000 IU TAB PO SCH (10:00)
[2018-09-29] MEDS: hydrALAZINE 25 MG TAB PO SCH ×3 (10:00→17:00)
[2018-09-29] MEDS: VALSARTAN 80 MG TAB PO SCH ×2 (10:00→21:00)
[2018-09-29] MEDS: SEVELAMER CARBONATE 800 MG TAB PO SCH ×3 (10:00→17:00)
[2018-09-29] MEDS: LACTOBACILLUS RHAMNOSUS GG 1 EACH CAP PO SCH (10:00)
--- NOTE | 2018-09-29 10:00 | NUR ---
PATIENT AWAKE AND ALERT, REFUSED 0900 ORAL MEDICATIONS AT THIS TIME. EDUCATED HER ON INDICATIONS AND WHY SHE NEEDS THEM, SHE REITERATED HER REFUSAL. SAFETY PRECAUTIONS IN PLACE, CALL LIGHT WITHIN REACH, WILL CONTINUE TO MONITOR PATIENT.
--- NOTE | 2018-09-29 10:44 | NUR ---
Clinicals faxed to [facility] .
--- NOTE | 2018-09-29 11:49 | NUR ---
Spoke with Lety NATH from [facility] and informed me pt will be going to room 25.
--- NOTE | 2018-09-29 12:10 | NUR ---
PATIENT SITTING UP IN BED EATING LUNCH, NO SIGN OF DISTRESS OR SOB NOTED ON ROOM AIR. PATIENT DENIES PAIN. WILL CONTINUE TO MONITOR PATIENT.
--- NOTE | 2018-09-29 14:08 | NUR ---
DR. BEASLEY IN TO SEE PATIENT. SPOKE TO PATIENT ABOUT NECESSITY OF ORAL BP MEDICATIONS. PATIENT AGREED TO TAKE 1300 MEDICATIONS AND ANTIBIOTICS. PATIENT TOLERATED THEM WELL. SITTER AT SIDE. PATIENT CURRENTLY SITTING UP AT SIDE OF BED, NO COMPLAINTS AT THIS TIME. PATIENT HAS SKIN TEAR ON LEFT ELBOW, PICTURE TAKEN. DR. BEASLEY AWARE. SAFETY PRECAUTIONS IN PLACE, CALL LIGHT WITHIN REACH, WILL CONTINUE TO MONITOR PATIENT.
[2018-09-29 16:00] VITALS: BP 168/69
--- NOTE | 2018-09-29 16:38 | NUR ---
PATIENT SITTING IN WHEELCHAIR OUTSIDE OF HER ROOM. NO SIGN OF DISTRESS OR SOB ON ROOM AIR. PATIENT CALM. NO COMPLAINTS AT THIS TIME. SAFETY PRECAUTIONS IN PLACE, CALL LIGHT WITHIN REACH, SITTER AT SIDE, WILL CONTINUE TO MONITOR PATIENT.
[2018-09-29] MEDS: CARVEDILOL 12.5 MG TAB PO SCH (17:00)
--- NOTE | 2018-09-29 17:00 | NUR ---
BP 115/53 HR 84. PATIENT LYING IN BED WITH EYES CLOSED, NOT EATING DINNER AT THIS TIME. PATIENT REFUSED ORAL MEDICATIONS. SAFETY PRECAUTIONS IN PLACE, SITTER AT SIDE, WILL CONTINUE TO MONITOR PATIENT.
--- NOTE | 2018-09-29 18:15 | NUR ---
KIMBERLY, HIGH DENSITY TALC COATER OPERATOR CALLED, INFORMED HER OF PATIENT'S STATUS AND HD ORDERED FOR TOMORROW.
--- NOTE | 2018-09-29 19:33 | NUR ---
REPORT GIVEN TO DOCUMENT SPECIALIST RN AT BEDSIDE FOR CONTINUITY OF CARE. PATIENT RESTING IN BED WITH EYES CLOSED.
[2018-09-29] MEDS: NACL 0.9% 1,000 ML IV SCH (19:34)
--- NOTE | 2018-09-29 19:34 | NUR ---
REPORT RECEIVED FROM AM SHIFT NURSE AT BEDSIDE. PATIENT AWAKE, AND TALKING TRISTANIAN. AWAKE ALERT X 2. AT THIS TIME, CALM. NO SIGN OF DISTRESS OR SOB ON ROOM AIR, RESPIRATIONS EVEN AND UNLABORED.WITH OPEN WOUND ON LEFT FOREARM, DRESSING IN PLACE, DRY AND INTACT. PATIENT DENIES PAIN. IV INTACT, ASYMPTOMATIC, AND SALINE LOCK. SAFETY PRECAUTIONS IN PLACE, CALL LIGHT WITHIN REACH, WILL CONTINUE TO MONITOR PATIENT.
[2018-09-29 20:00] VITALS: BP 139/61
[2018-09-29] MEDS: MELATONIN 3 MG TAB PO PRN (20:41)
--- NOTE | 2018-09-29 21:24 | NUR ---
PT SPIT OUT MEDICINES WHEN I PLACED IT IN HER MOUTH; VALSARTAN AND MELATONIN. DR. ORANTES AWARE. MEDS WERE NON ADMINISTERED
--- NOTE | 2018-09-29 21:24 | NUR ---
PT REFUSED HEPARIN NA SQ, PT IS AMBULATORY W/ 1 PERSON ASSIST.
--- NOTE | 2018-09-29 21:26 | NUR ---
LATE ADMINISTRATION OF ROCEPHIN AND CLINDAMYCIN BECAUSE PT. REFUSED. ADMINISTERED IV JUST NOW
--- NOTE | 2018-09-29 21:29 | NUR ---
PT REFUSED TX AT THIS TIME. RN AWARE.
--- NOTE | 2018-09-29 21:42 | NUR ---
WILL RETURN THE HEPARIN NA SUBQ AT [facility]
--- NOTE | 2018-09-29 23:10 | NUR ---
PT AMBULATING INSIDE ROOM, AND SAT DOWN BY THE DOOR.PT STILL REFUSING PO MEDS. BUT PT HAS NOT REFUSED IV MEDS GIVEN
--- NOTE | 2018-09-30 01:14 | NUR ---
PT ALWAYS GETTING UP ON BED, UNABLE TO SLEEP
--- NOTE | 2018-09-30 02:30 | NUR ---
PT'S IV ON LEFT HAND G 22 LEAKING, D/C. CLEANED AND CHANGED DRESSING ON SKIN TEAR ON LEFT FOREARM.
--- NOTE | 2018-09-30 02:48 | NUR ---
INSERTED A NEW LINE G 24, LEFT HAND, PATENT.
--- NOTE | 2018-09-30 04:00 | NUR ---
BP INCREASED 180/71, HR 71. WILL ADMINISTER HYDRALAZINE IV.
[2018-09-30] MEDS: hydrALAZINE 20 MG/ML VIAL IVP PRN (04:03)
[2018-09-30] MEDS: CLINDAMYCIN PHOS 600MG/D5W PM 50 ML IV SCH ×3 (04:44→20:27)
--- NOTE | 2018-09-30 05:06 | NUR ---
LATEST BP 134/93, HR 79
--- NOTE | 2018-09-30 06:01 | NUR ---
PT REFUSED LABS
[2018-09-30] MEDS ORDERED: LACT10CA PO (06:26)
[2018-09-30] MEDS ORDERED: SEVE800T6 PO (06:26)
[2018-09-30] MEDS ORDERED: MELA3TAB PO (06:26)
[2018-09-30] MEDS ORDERED: CARV12.52 PO (06:26)
[2018-09-30] MEDS ORDERED: NEP PO (06:26)
[2018-09-30] MEDS ORDERED: HYDR-4420 PO (06:26)
[2018-09-30] MEDS ORDERED: CEFT1SOL1 IV (06:40)
[2018-09-30] MEDS ORDERED: CLIN300C2 IV (06:40)
--- NOTE | 2018-09-30 06:47 | NUR ---
PT ASLEEP, BUT AROUSABLE BY NAME. PT NOT IN RESPIRATORY DISTRESS, PT HAS NO COMPLAINTS OF PAIN. WILL ENDORSE TO NEXT SHIFT FOR CONTINUITY OF CARE.
--- NOTE | 2018-09-30 07:25 | NUR ---
REPORT RECEIVED FROM EARRING MAKER NURSE AT BEDSIDE FOR CONTINUITY OF CARE. PATIENT IS RESTING ON BED AT THIS TIME. AOX2 TO NAME AND PLACE. DENIES PAIN. NO SIGN OF DISTRESS OR SOB ON ROOM AIR. MALIAN SPEAKING. RESPIRATIONS EVEN AND UNLABORED. IV ON L HAND, INTACT AND ASYMPTOMATIC, SALINE LOCK. R AV SHUT NOTED, SIGNS POSTED. SKIN TEAR NOTED ON R ARM AND DRESSING INTACT AND DRY. SAFETY PRECAUTIONS IN PLACE. BED IS IN LOW POSITION AND CALL LIGHT WITHIN REACH.
--- NOTE | 2018-09-30 08:06 | NUR ---
AWAKE AND ALERT NO SOB NOTED PATIENT WITH BREAKFAST TRAY AT THIS TIME SUPERVISOR LIQUID YEAST TO ATTEMPT HHN THERAPY AND RESPIRATORY DRUG AT A A LATER TIME
--- NOTE | 2018-09-30 08:26 | NUR ---
PENSION ADMINISTRATOR ANDREA IS AT BEDSIDE. PATIENT IS LAYING ON BED AND BEING READY FOR DIALYSIS. SAFETY MEASURES ARE IN PLACE.
[2018-09-30] MEDS: ALBUTEROL SULFATE/IPRATROPIU 3 ML SOL IH SCH ×3 (08:36→19:00)
[2018-09-30] MEDS: SEVELAMER CARBONATE 800 MG TAB PO SCH ×3 (09:00→17:00)
[2018-09-30] MEDS: hydrALAZINE 25 MG TAB PO SCH ×3 (09:00→17:00)
--- NOTE | 2018-09-30 11:06 | NUR ---
PATIENT IS WITH KNOWLEDGE MANAGER ANDREA. NO SIGNS OF DISTRESS NOTED.
[2018-09-30] MEDS: CHOLECALCIFEROL 1,000 IU TAB PO SCH (12:29)
[2018-09-30] MEDS: LACTOBACILLUS RHAMNOSUS GG 1 EACH CAP PO SCH (12:29)
[2018-09-30] MEDS: VIT-B COMP/VIT-C/FOLIC ACID 1 TAB PO SCH (12:30)
[2018-09-30] MEDS: ECOTRIN 81 MG TABEC PO SCH (12:30)
[2018-09-30] MEDS: CARVEDILOL 12.5 MG TAB PO SCH ×2 (12:31→17:00)
[2018-09-30] MEDS: amLODIPine 5 MG TAB PO SCH (12:32)
[2018-09-30] MEDS: VALSARTAN 80 MG TAB PO SCH ×2 (12:33→22:06)
--- NOTE | 2018-09-30 12:49 | NUR ---
CALLED [facility] AND SPOKE WITH NATHAN, ADMISSION COORDINATOR. I INFORMED HER THAT THE PATIENT WILL PROBABLY BE GOING TO BE TRANSFERED TO [facility] TOMORROW. NATHAN SAID THE PATIENT WILL GO TO ROOM [address] [place]. SHE SAID SHE SPOKE WITH THE SON WHO WILL INFORM HER WHO TRANSPORTS THE PATIENT TO DIALYSIS AND WHICH DIALYSIS SHE GOES TO. I GAVE NATHAN THE PHONE NUMBER TO THE FLOOR . [facility], [phone].
--- NOTE | 2018-09-30 13:00 | NUR ---
PATIENT WAS IN DIALYSIS IN THE AM. BP IS 168/79 AFTER DIALYSIS. ADMINISTERED AM MED AND BP MEDS.
--- NOTE | 2018-09-30 14:09 | NUR ---
AWAKE CONFUSED AND COMBATIVE CURRENTLY SITTING UP IN CHAIR REFUSED HHN THERAPY AND RESPIRATORY DRUG TRACY/RN NOTIFIED
--- NOTE | 2018-09-30 15:26 | NUR ---
PATIENT IS SITTING UP ON CHAIR. SITTER IS BESIDE PATIENT. NO SIGNS OF DISTRESS NOTED.
--- NOTE | 2018-09-30 15:53 | NUR ---
09/30/18 RD INITIAL ASSESSMENT COMPLETED PLEASE REFER TO NUTRITION ASSESSMENT UNDER CARE ACTIVITY FOR ESTIMATED NUTRITIONAL NEEDS. 1. CONTINUE RENAL MECH SOFT DIET TOLERATED 2. RECOMMEND NEPRO BID 3. RD TO FOLLOW-UP 3-5 DAYS, MODERATE RISK ASHISH ALFORD, RD
[2018-09-30 16:00] VITALS: BP 172/103
--- NOTE | 2018-09-30 16:02 | NUR ---
PATIENT REFUSED TO GO BACK ON BED. PATIENT IS AMBULATING THE HALLWAY AND SITTER IS BESIDE THE PATIENT. NO SIGNS OF DISTRESS NOTED.
--- NOTE | 2018-09-30 17:09 | NUR ---
PATIENT REFUSED ALL PO MEDS. NOTIFIED DR HECK ON REGARDS. PER , SHE WILL PUT IN AN ORDER FOR HADRALAZINE IVP.
[2018-09-30] MEDS ORDERED: hydrALAZINE 20 MG/ML VIAL IVP SCH (17:30)
--- NOTE | 2018-09-30 17:44 | NUR ---
ADMINISTERED HYDRALAZINE 10MG/0.5ML PER MD ORDER, PATIENT TOLERATED WELL. PATIENT'S SON CHELSEA IS AT BEDSIDE AND TALKING TO PATIENT. NO SIGNS OF DISTRESS NOTED. SAFETY MEASURES ARE IN PLACE.
--- NOTE | 2018-09-30 18:41 | NUR ---
REASSESSED BP AND RECEIVED 153/103, PATIENT ASYMPTOMATIC AND NO SIGNS OF DISTRESS NOTED.
--- NOTE | 2018-09-30 19:30 | NUR ---
ENDORSED PATIENT AT BEDSIDE TO FREIGHT CALLER NURSE FOR CONTINUITY OF CARE. PATIENT IS IN STABLE CONDITION.
[2018-09-30] MEDS: NACL 0.9% 1,000 ML IV SCH (19:34)
--- NOTE | 2018-09-30 19:40 | NUR ---
Received endorsement from AM shift RN; patient is A/Ox2, bouts of confusion and combative. Polish speaking only. Patient is ambulatory, but on fall precautions. Introduced self, updated board. No SOB or distress noted, on room air. IV site on left hand, 22 gauge, saline locked. AV shunt on right upper arm. Patient on fluid restrictions, on renal diet. Bed in the lowest position, call light within reach. Initial assessment done. Will continue to monitor.
--- NOTE | 2018-09-30 19:50 | NUR ---
Patient up out of bed, being combative. Guided patient back to bed. Will continue to monitor.
--- NOTE | 2018-09-30 20:00 | NUR ---
Patient refused IV antibiotic Rocephin and IVF. Made Dr. Marques aware.
--- NOTE | 2018-09-30 22:01 | NUR ---
Patient refused IV antibacterial Clindamycin; made Dr. Marques aware this will be the second missed dose. Patient accepted to take oral med Diovan, tolerated well. Patient refused heparin sodium administration. Will continue to monitor.
--- NOTE | 2018-09-30 23:01 | NUR ---
Patient asleep, laying right lateral position. Will continue to monitor.
[2018-10-01] VITALS: BP 150/96
--- NOTE | 2018-10-01 00:06 | NUR ---
Vitals taken, patient went to bathroom, assisted by PATTERN GRADER. No distress noted. Patient went back to sleep, on left lateral position. Will continue to monitor.
--- NOTE | 2018-10-01 02:00 | NUR ---
Patient sitting up on side of the bed. Made patient aware its 0200 in the morning and she needs to go back to sleep. Will continue to monitor.
--- NOTE | 2018-10-01 02:11 | NUR ---
Patient laying on right lateral side. Patient asleep, visible chest rise and fall noted.
--- NOTE | 2018-10-01 04:01 | NUR ---
IV Clindamycin refused. Dr. Marques made aware this will be third missed dose.
[2018-10-01] MEDS: CLINDAMYCIN PHOS 600MG/D5W PM 50 ML IV SCH ×2 (04:05→13:00)
--- NOTE | 2018-10-01 04:29 | NUR ---
Patient asleep, visible chest rise and fall noted.
--- NOTE | 2018-10-01 06:33 | NUR ---
Patient awake, labs drawn. Patient sitting on chair, no distress noted.
[2018-10-01] MEDS: ALBUTEROL SULFATE/IPRATROPIU 3 ML SOL IH SCH ×2 (07:00→13:00)
--- NOTE | 2018-10-01 07:11 | NUR ---
Endorsed patient to AM shift RN; patient in stable condition.
--- NOTE | 2018-10-01 07:12 | NUR ---
AWAKE AND ALERT NO SOB NOTED SITTING UP IN CHAIR PATIENT REFUSING [facility] THERAY AND RESPIRATORY DRUG BI/RN NOTIFIED
--- NOTE | 2018-10-01 07:15 | NUR ---
RECEIVED BEDSIDE REPORT FROM LIFT TRUCK OPERATOR NURSE FOR CONTINUITY OF CARE. PATIENT IS SITTING ON A CHAIR AT THIS TIME. PATIENT IS WEARING YELLOW GOWN, YELLOW SOCKS AND YELLOW ARM BAND. AOX2 TO NAME AND PLACE. DENIES PAIN. NO SIGN OF DISTRESS OR SOB NOTED. ON ROOM AIR. PRYDEINIG SPEAKING ONLY. RESPIRATIONS EVEN AND UNLABORED. IV ON L HAND, INTACT AND ASYMPTOMATIC, SALINE LOCK. R AV SHUNT NOTED, SIGNS POSTED. SKIN TEAR NOTED ON R ARM AND DRESSING INTACT AND DRY. SAFETY PRECAUTIONS IN PLACE. INSTRUCTED PATIENT TO USE THE CALL LIGHT FOR ANY ASSISTANCE. BED IS IN LOW POSITION AND CALL LIGHT WITHIN REACH.
[2018-10-01 07:39] LABS: CARBON DIOXIDE 24.2 mmol/L (21-32); CHLORIDE 99 mmol/L (98-107); GLUCOSE 94 mg/dL (74-106); POTASSIUM 4.2 mmol/L (3.5-5.1); SODIUM SERUM 136 mmol/L (136-145); UREA NITROGEN, BLOOD 34 mg/dL (7-18)
[2018-10-01 07:41] LABS: CREATININE 4.9 mg/dL (0.6-1.3)
--- NOTE | 2018-10-01 07:45 | NUR ---
RECEIVED CRITICAL LAB FOR CREATININE 4.[address] FOSTER. DR IS TALKING TO PATIENT AT BEDSIDE.
[2018-10-01 07:47] LABS: BASOPHILS # (AUTO) 0.1 K/uL (0.00-0.22); BASOPHILS % (AUTO) 0.6 % (0.0-2.0); EOSINOPHILS # (AUTO) 0.3 K/uL (0-0.4); EOSINOPHILS % (AUTO) 2.9 % (0.0-4.0); HEMATOCRIT 30.6 % (36-48); HEMOGLOBIN 10.5 g/dL (12.0-16.0); LYMPHOCYTES # (AUTO) 1.4 K/uL (2.5-16.5); LYMPHOCYTES % (AUTO) 14.6 % (20.5-51.1); MEAN CORPUSCULAR HEMOGLOBIN 32 pg (27-31); MEAN CORPUSCULAR HGB CONC 34 g/dL (33-37); MEAN CORPUSCULAR VOLUME 92.2 fL (80-94); MONOCYTES % (AUTO) 10.4 % (1.7-9.3); NEUTROPHILS # (AUTO) 6.8 K/uL (1.8-7.7); NEUTROPHILS % (AUTO) 71.5 % (42.2-75.2); PLATELET COUNT (AUTO) 222 K/uL (140-450); RED BLOOD CELL COUNT(AUTO) 3.31 MIL/uL (4.20-5.40); RED CELL DISTRIBUTION WIDTH 15.4 % (11.6-13.7); WHITE BLOOD COUNT (AUTO) 9.6 K/uL (4.8-10.8)
[2018-10-01 07:48] LABS: MAGNESIUM 2.1 mg/dL (1.8-2.4); PHOSPHORUS 6.7 mg/dL (2.5-4.9)
--- NOTE | 2018-10-01 07:52 | NUR ---
CHECKED VITALS SIGN AND RECEIVED BP 176/64 AND PULSE 74. PATIENT SAID SHE DOESN'T WANT TO TAKE ANY MEDS NOW, BUT LATER. WILL TRY TO ADMINISTER BP PO MED AGAIN SHORTLY. NOTIFIED DR FOSTER DURING AM ROUND THAT PATIENT'S BP IS 176/64 AND PULSE 74 AND PATIENT IS NON-COMPLIANCE FOR MEDICATIONS.
[2018-10-01 08:00] VITALS: BP 176/64
[2018-10-01] MEDS: amLODIPine 5 MG TAB PO SCH (08:59)
[2018-10-01] MEDS: hydrALAZINE 25 MG TAB PO SCH ×3 (08:59→17:10)
[2018-10-01] MEDS: VALSARTAN 80 MG TAB PO SCH (09:00)
[2018-10-01] MEDS: ECOTRIN 81 MG TABEC PO SCH (09:00)
[2018-10-01] MEDS: CARVEDILOL 12.5 MG TAB PO SCH ×2 (09:00→17:09)
[2018-10-01] MEDS: LACTOBACILLUS RHAMNOSUS GG 1 EACH CAP PO SCH (09:02)
[2018-10-01] MEDS: VIT-B COMP/VIT-C/FOLIC ACID 1 TAB PO SCH (09:03)
[2018-10-01] MEDS: SEVELAMER CARBONATE 800 MG TAB PO SCH ×3 (09:03→17:10)
[2018-10-01] MEDS: CHOLECALCIFEROL 1,000 IU TAB PO SCH (09:03)
--- NOTE | 2018-10-01 09:10 | NUR ---
FORESTRY EXTENSION SPECIALIST WAS ABLE CONVINCE PATIENT TO TAKE ALL HER AM PO MEDS. PATIENT REFUSED HEPARIN AND STATED THAT SHE DOESN'T LIKE NEEDLE AND SHE DOESN'T WANT TO BE CONNECTED WITH IV PUMP. EDUCATION PROVIDED. PATIENT TOLERATED PO MEDS WELL. SHE IS RESTING ON BED AT THIS TIME. DENIES PAIN AND SOB. NO SIGNS OF DISTRESS NOTED. SAFETY MEASURES IN PLACE.
[2018-10-01 10:07] VITALS: BP 151/60
--- NOTE | 2018-10-01 10:09 | NUR ---
CHECKED BP AND RECEIVED 151/60 AND PULSE 66. PATIENT IS ASYMPTOMATIC AND NO SIGNS OF DISTRESS NOTED. DENIES PAIN AND SOB. PATIENT IS RESTING ON BED. SAFETY MEASURES IN PLACE. BED IN LOW POSITION AND CALL LIGHT WITHIN REACH.
--- NOTE | 2018-10-01 11:06 | NUR ---
PATIENT IS SITTING ON THE CHAIR BESIDE HER BED AND HOLDING HER BLANKET. DENIES PAIN AND SOB. NO SIGNS OF DISTRESS NOTED.
--- NOTE | 2018-10-01 11:17 | NUR ---
PATIENT PULLED OUT THE SL ON L HAND. CHECKED IV CANNULA AND IV TIP INTACT AND COMPLETE. NO BLEEDING AT THE IV SITE. REMOVED TRANSDERM DRESSING AND TAPE FROM HAND.
--- NOTE | 2018-10-01 11:26 | NUR ---
PATIENT REFUSED TO START A NEW IV. EDUCATION PROVIDED AND CLERICAL WAREHOUSEMAN TALKED TO PATIENT IN [place]. PATIENT REPLIED THAT SHE DOESN'T NEED IV. NOTIFIED DR FOSTER AND GRAIN DRIER.
--- NOTE | 2018-10-01 11:45 | NUR ---
AMBULATED WITH PATIENT AROUND THE [address] WAY FOR 15 MINS. PATIENT IS ABLE TO WALK WITH STABLE GAIT WITH STANDBY ASSISTANCE. PATIENT IS WEARING YELLOW GOWN, YELLOW SOCKS AND WRIST BAND. DENIES SOB. NO SIGNS OF DISTRESS NOTED.
[2018-10-01] MEDS ORDERED: LEVO750T2 IV (13:07)
--- NOTE | 2018-10-01 13:08 | NUR ---
WOUND DRESSING CHANGED. CLEANSED WITH SOAP AND WATER, RINSE WITH NS, PAT DRY. APPLIED ADAPTIC GUARD AND DRY BY 4X4. SECURE WITH 2" PAPER TAPE. PATIENT TOLERATED WELL. NO SIGNS OF DISTRESS NOTED.
--- NOTE | 2018-10-01 13:38 | NUR ---
ADMINISTERED SCHEDULE PO MEDS, PATIENT TOLERATED WELL. UNABLE TO ADMINISTER CLINDAMYCIN VIA IVPB DUE TO PATIENT REFUSED IV START. EDUCATION PROVIDED TO PATIENT. NOTIFIED.
--- NOTE | 2018-10-01 14:20 | NUR ---
CALLED AND SPOKE WITH PATIENT'S SON CHELSEA. NOTIFIED CHELSEA THAT PATIENT WILL BE TRANSFER TO [facility] FOR ANTIBIOTIC AND PLACE IN ROOM 25. CHELSEA WAS AWARE AND ACKNOWLEDGE ABOUT THE TRANSFER.
--- NOTE | 2018-10-01 14:37 | NUR ---
CALLED [facility] AT TO GIVE REPORT AND SPOKE TO LORY. PER LORY, THEY ARE VERY BUSY TO GIVE TREATMENT AT THIS MOMENT. SHE ASKED TO CALL BACK AFTER 1500. BUTCHER HEAD NOTIFIED.
--- NOTE | 2018-10-01 14:58 | NUR ---
Superintendent [employer] Note: I called Eden from Admissions at [facility] at to discuss and coordinate Patient's discharge to their facility today. Eden agreed and stated that Patient has been accepted to [facility] and she will be setting up transportation for Patient today. Eden stated that she will probably scheduled D/C for patient about 17:00 today due to changes of staff in [facility]. Patient will go to room [address] Rodney. I thanked Eden for her assistance and coordination for patient's discharge and I ended the call. Charge Nurse Lakia has been made aware.
--- NOTE | 2018-10-01 15:11 | NUR ---
PATIENT COMBATIVE REFUSED [facility] THERAPY RESPIRATORY DRUG AND ASSESSMENT LYING DOWN ON BED LEFT SIDE NO EVIDENCE OF SOB NOTED GOOD CHEST RISE
--- NOTE | 2018-10-01 15:42 | NUR ---
CALLED [facility] AT TO GIVE FULL REPORT TO JADIEL Farnsworth RN. ANSWERED ALL JADIEL'S QUESTIONS. PER JADIEL, HE WILL BE THE RN TAKING CARE OF PATIENT. JADIEL WAS AWARE THAT PATIENT IS PLACED IN ROOM 25 AND WILL BE HEALTH EQUIPMENT SERVICER FROM [facility] AT 1700.
--- NOTE | 2018-10-01 15:46 | NUR ---
PATIENT IS SITTING ON THE CHAIR BY BEDSIDE AND PACKING HER BELONGINGS. NO SIGNS OF DISTRESS NOTED.
[2018-10-01 16:00] VITALS: BP 160/71
--- NOTE | 2018-10-01 17:03 | NUR ---
PATIENT HAS CHANGED INTO HER OWN CLOTHES AND SITTING ON THE CHAIR BESIDE THE BED. SHE HAS GATHERED ALL HER BELONGINGS IN THE BAG. WAITING FOR [facility] TO BE ARRIVAL. DENIES PAIN AND SOB. NO SIGNS OF DISTRESS NOTED.
--- NOTE | 2018-10-01 17:12 | NUR ---
ADMINISTERED PO MEDS, AND PATIENT TOLERATED WELL. NO SIGNS OF DISTRESS NOTED. PATIENT IS READY TO BE DISCHARGE. AND WAITING FOR [facility] TO BE ARRIVAL.
--- NOTE | 2018-10-01 17:25 | NUR ---
DISCHARGE INSTRUCTION PROVIDED TO PATIENT AND PATIENT SIGNED ALL DISCHARGE DOCUMENTS. PROVIDED A COPY OF ALL DOCUMENTS TO PATIENT. EDUCATED PATIENT ON DISEASE MANAGEMENT, MEDICATIONS REGIMENS, SIDE EFFECTS, FOLLOW UP WITH MD, AND DIET REGIMEN. ANSWERED ALL PATIENT'S QUESTIONS AND PATIENT VERBALIZED "SI." REMOVED ALL ARMBANDS. PATIENT CHECKED ALL DRAWERS AND CABINET AND SHE TOOK ALL HER BELONGINGS. PATIENT IS IN A STABLE CONDITION. ROLANDO FROM [facility] ESCORTED PATIENT TO THE LOBBY WITH THE WHEELCHAIR. PATIENT DISCHARGED AT THIS TIME.
== END 2018-10-01 17:25 | DRG 177 ==
LOC: MED 17:27 → MTU 19:43
PROVIDERS: ADMIT General Practice; ATTEND General Practice
PROC: 5A1D70Z Performance of Urinary Filtration, Intermittent, Less than 6 Hours Per Day (ICD-10-PCS; principal; 2018-09-28)
PROC: 5A1D70Z Performance of Urinary Filtration, Intermittent, Less than 6 Hours Per Day (ICD-10-PCS; 2018-09-30)
DX: J69.0 Pneumonitis due to inhalation of food and vomit (principal); N18.6 End stage renal disease; N17.0 Acute kidney failure with tubular necrosis; I21.A1 Myocardial infarction type 2; I13.2 Hypertensive heart and chronic kidney disease with heart failure and with stage 5 chronic kidney disease, or end stage renal disease; E87.1 Hypo-osmolality and hyponatremia; I42.9 Cardiomyopathy, unspecified; Z99.2 Dependence on renal dialysis; E87.5 Hyperkalemia; D63.1 Anemia in chronic kidney disease; E83.39 Other disorders of phosphorus metabolism; F03.90 Unspecified dementia, unspecified severity, without behavioral disturbance, psychotic disturbance, mood disturbance, and anxiety; F32.9 Major depressive disorder, single episode, unspecified; I50.9 Heart failure, unspecified; Z79.899 Other long term (current) drug therapy; Z90.49 Acquired absence of other specified parts of digestive tract; Z90.710 Acquired absence of both cervix and uterus; Z88.0 Allergy status to penicillin
CPT/HCPCS: 36415; 71045; 76604; 80048; 80053; 80305; 81001; 82140; 82306; 82607; 82746; 82948; 83036; 83605; 83735; 83880; 84100; 84439; 84443; 84484; 85025; 86704; 86706; 86708; 86709; 86803; 87040; 87081; 87086; 87340; 87804; 90935; 92610; 93005; 94640; 97110; 97116; 97530; 99285; J0360; J0456; J0696; J1100; J1200; J1644; J2060; J3490; J7030; J7060; J7620; Q0092; Q0163